=== PATIENT | female | born 1995 | race Two or more races ===

== ENCOUNTER 2016-08-11 19:37 | Emergency (ER) | payer OTHER ==
[~2016-08-11] VITALS: Ht 160 cm; Wt 81.6 kg
[2016-08-11] MEDS ORDERED: CLAR10CA3 PO (19:54)
[2016-08-11] MEDS ORDERED: ZITHTAB PO (19:54)
[2016-08-11] MEDS ORDERED: BENA25CA4 PO (19:54)
[2016-08-11] MEDS ORDERED: diphenhydrAMINE INJ 50MG/ML VIAL (J1200) As Ordered ONE (20:00)
[2016-08-11] MEDS ORDERED: FAMOTIDINE/NS 20 MG/50 ML BAG (S0028) As Ordered ONE (20:04)
[2016-08-11] MEDS ORDERED: ACETAMINOPHEN 325 MG TAB As Ordered ONE (20:06)
[2016-08-11] MEDS ORDERED: FAMOTIDINE IV BAG 20 MG in APPROPRIATE DILUENT 1 EA IV ONE (20:15)
[2016-08-11] MEDS ORDERED: ACETAMINOPHEN 325 MG TAB PO ONE (20:15)
[2016-08-11] MEDS ORDERED: NS 500 ML IV ONE (20:15)
[2016-08-11] MEDS ORDERED: diphenhydrAMINE INJ 50MG/ML VIAL (J1200) IV ONE (20:15)
[2016-08-11] MEDS ORDERED: PEPC1TAB4 PO (21:24)
[2016-08-11 21:36] VITALS: BP 116/77
== END 2016-08-11 21:46 | disposition home or self-care (01) ==
LOC: M ED 20:27
DX: O99.89 Other specified diseases and conditions complicating pregnancy, childbirth and the puerperium (principal); L50.9 Urticaria, unspecified; O98.811 Other maternal infectious and parasitic diseases complicating pregnancy, first trimester; J02.0 Streptococcal pharyngitis; Z3A.01 Less than 8 weeks gestation of pregnancy; Z88.0 Allergy status to penicillin
CPT/HCPCS: 80053; 84443; 84702; 85027; 96374; 96375; 99283; J1200

== ENCOUNTER → 2016-08-11 | Outpatient (REF) | payer OTHER ==
[~2016-08-11] MED LIST: BENA25CA4 PO; CLAR10CA3 PO; PEPC1TAB4 PO; ZITHTAB PO
[2016-08-11 18:14] LABS: MEAN CORPUSCULAR HEMOGLOBIN 28.4 pg (27.0-33.0); MEAN CORPUSCULAR HGB CONC 34.3 g/dl (32.0-36.5); MEAN CORPUSCULAR VOLUME 82.9 fl (80.0-96.0); RED CELL DISTRIBUTION WIDTH 12.8 % (11.5-14.5); WHITE BLOOD COUNT 15.1 K/mm3 (4.0-10.0)
[2016-08-11 20:11] LABS: ALBUMIN 3.7 GM/DL (3.2-5.2); ALBUMIN/GLOBULIN RATIO 1.28 (1.00-1.93); ALKALINE PHOSPHATASE 78 U/L (45-117); ALT/SGPT 17 U/L (12-78); ANION GAP 9 MEQ/L (8-16); AST/SGOT 8 U/L (15-37); BILIRUBIN,TOTAL 0.8 MG/DL (0.2-1.0); BLOOD UREA NITROGEN 11 MG/DL (7-18); CALCIUM LEVEL 8.5 MG/DL (8.5-10.1); CARBON DIOXIDE LEVEL 25 MEQ/L (21-32); CHLORIDE LEVEL 104 MEQ/L (98-107); CREATININE FOR GFR 0.68 MG/DL (0.55-1.02); GLUCOSE, FASTING 103 MG/DL (70-105); HCG, SERUM QUANTITATIVE 22872 MIU/ML; POTASSIUM SERUM 4.1 MEQ/L (3.5-5.1); SODIUM LEVEL 138 MEQ/L (136-145); TOTAL PROTEIN 6.6 GM/DL (6.4-8.2)
== END ==
LOC: M SFHCLERA 14:33
PROVIDERS: ATTEND Nurse Practitioner Family
DX: O13.1 Gestational [pregnancy-induced] hypertension without significant proteinuria, first trimester (principal)

== ENCOUNTER → 2016-08-26 | Outpatient (CLI) | payer OTHER ==
--- NOTE | 2016-08-27 04:04 | REP ---
Clinical: Abnormal renal function. Technique: Eaton scale evaluation of the kidneys. Findings: The kidneys are essentially normal in contour, echogenicity and reniform shape without hydronephrosis, nephrolithiasis, cystic or renal mass lesion. Right kidney measures 10.6 x 4.5 x 4.7 cm. Left kidney measures 12.8 x 5.9 x 4.3 cm. Bladder is incompletely distended and grossly normal by current evaluation. Bilateral ureteral jets are visualized. Impression: Mild size discrepancy (L>R) to the kidneys. Otherwise unremarkable examination. Signed by Bakari Heart MD 08/27/2016 03:56 A
== END ==
LOC: M LRY 10:30
PROVIDERS: ATTEND Family Medicine
DX: N28.9 Disorder of kidney and ureter, unspecified (principal)

== ENCOUNTER → 2016-08-26 | Outpatient (REF) | payer OTHER | LOC: M SFHCLERA 10:26 | PROVIDERS: ATTEND Family Medicine | DX: N28.9 Disorder of kidney and ureter, unspecified (principal) ==

== ENCOUNTER → 2016-09-02 | Outpatient (CLI) | payer OTHER ==
[2016-09-02 12:38] LABS: BASO % 0.6 % (0.0-1.0); EOS # 0.2 K/mm3 (0.0-0.50); EOS % 2.8 % (0.0-3.0); LARGE UNSTAINED CELL # 0.1 K/mm3 (0.0-0.4); LARGE UNSTAINED CELL % 1.4 % (0.0-4.0); LYMPH # 1.6 K/mm3 (1.5-6.5); LYMPH % 24.3 % (24.0-44.0); MEAN CORPUSCULAR HEMOGLOBIN 27.8 pg (27.0-33.0); MEAN CORPUSCULAR HGB CONC 33.3 g/dl (32.0-36.5); MEAN CORPUSCULAR VOLUME 83.7 fl (80.0-96.0); MONO # 0.2 K/mm3 (0.0-0.8); MONO % 3.1 % (0.0-5.0); NEUTROPHILS # 4.3 K/mm3 (1.8-7.7); NEUTROPHILS % 67.8 % (36.0-66.0); PLATELET COUNT, AUTOMATED 355 k/mm3 (150-450); RED CELL DISTRIBUTION WIDTH 12.6 % (11.5-14.5)
[2016-09-03 08:02] LABS: WHITE BLOOD COUNT 6.3 K/mm3 (4.0-10.0)
[2016-09-03 09:56] LABS: HBsAg Prenatal NEGATIVE (NEGATIVE)
== END ==
LOC: M LRY 10:14
PROVIDERS: ATTEND Obstetrics & Gynecology
DX: Z34.81 Encounter for supervision of other normal pregnancy, first trimester (principal); Z36 Encounter for antenatal screening of mother

== ENCOUNTER → 2016-09-02 | Outpatient (REF) | payer OTHER | LOC: M SFHCLERA 14:52 | PROVIDERS: ATTEND Family Medicine | DX: J02.0 Streptococcal pharyngitis (principal) ==